=== PATIENT | male | born 1965 | race Caucasian/White ===

== ENCOUNTER → 2018-11-28 | Day surgery (SDC) | payer BC ==
[2018-11-26 15:02] LABS: BASOPHILS % 0.3 % (0.0-1.0); EOSINOPHILS # (AUTO) 0.1 (0.0-0.4); EOSINOPHILS % 1.2 % (0.0-6.0); HEMATOCRIT 45.5 % (38.2-49.6); HEMOGLOBIN 15.4 g/dL (14.0-18.0); LYMPHOCYTES # (AUTO) 1.1 (1.0-3.2); MEAN CORPUSCULAR HEMOGLOBIN 28.8 pg (28-32); MEAN CORPUSCULAR HGB CONC 33.8 g/dL (31-35); MEAN CORPUSCULAR VOLUME 85.2 fL (81-99); MONOCYTES # (AUTO) 0.6 (0.2-0.8); MONOCYTES % 7.8 % (4.4-11.3); NEUTROPHILS # (AUTO) 5.6 (2.1-6.9); NEUTROPHILS % 75.3 % (38.7-80.0); PLATELET COUNT 284 x10e3/uL (140-360); RED BLOOD COUNT 5.34 x10e6/uL (4.3-5.7); RED CELL DISTRIBUTION WIDTH 13.2 % (11.7-14.4)
[2018-11-26 15:13] LABS: INR 0.98; PROTHROMBIN TIME 13.5 seconds (11.9-14.5)
[2018-11-26 15:20] LABS: ALANINE AMINOTRANSFERASE 29 IU/L (0-55); ALBUMIN 4.2 g/dL (3.5-5.0); ALBUMIN/GLOBULIN RATIO 1.2 (0.8-2.0); ALKALINE PHOSPHATASE 65 IU/L (40-150); ANION GAP 12.8 mmol/L (8-16); BLOOD UREA NITROGEN 20 mg/dL (7-26); BUN/CREATININE RATIO 20 (6-25); CALCIUM 9.7 mg/dL (8.4-10.2); CARBON DIOXIDE 26 mmol/L (22-29); CHLORIDE 102 mmol/L (98-107); CREATININE, SERUM 0.98 mg/dL (0.72-1.25); EST GLOMERULAR FILTRATION RATE > 60 ML/MIN (60-); GLUCOSE 101 mg/dL (74-118); POTASSIUM 3.8 mmol/L (3.5-5.1); SODIUM 137 mmol/L (136-145)
[~2018-11-28] VITALS: Ht 172.7 cm; Wt 118.4 kg
[~2018-11-28] MED LIST: ASPIR 8181 MG PO; CRESTOR10 MG PO; IBUPROFEN200 MG PO; LISINOPRIL2.5 MG PO; METFORMIN HCL500 MG PO; PREVACID30 M1 PO
--- OUTSIDE RECORDS SUMMARY | 2018-11-28 10:03 | XMS REPORT ---
Author Author [facility] Address Unknown Phone Unavailable Care Team Providers Care Sales Floor Manager Name Role Phone Unavailable Unavailable Problems This patient has no known problems. Allergies, Adverse Reactions, Alerts This patient has no known allergies or adverse reactions. Medications This patient has no known medications. Encounters Start Date/Time End Date/Time Encounter Type Admission Type Attending [facility] Facility Care Department Encounter ID 2017-06-26 00:00:00 2017-06-27 00:00:00 Outpatient [facility] [place] [facility] [id number]
--- NOTE | 2018-11-28 15:10 | NUR ---
Report provided to Wilma Armstrong RN, review of procedural findings and medications given. Patient drowsy, easily aroused. maintains airway and room air saturations of 98-99%. No gross issues of pressure, pain, pallor or dysrhythmia. IV site patent with NS 0.9% at KVO by gravity. patient hemodynamically stable with TR BAND to right radial dressing CDI w/o s/s of bleeding. patient transferred to stretcher under own strength w/o incident. transported to [facility] holding [place] [facility] [place]: Diagtnostic LHC and coronary angiography radial approach Sheath puller: Jer SANABRIA TR Band 12ml Meds Given Intra-Procedure Sedatives Versed - 2 mg Fentanyl - 50 mcg Radial Cocktail IA Heparin - 3000Units Nitro - 200mcg Verapamil - 2.5mg Fluids Input - 300 ml Output - dtv Contrast Isovue 370 - 90 ml
[2018-11-28 15:30] VITALS: BP 113/77
--- NOTE | 2018-11-28 15:30 | NUR ---
1530 Bedside report received from Jorge TEAGUE. [facility] No sunita Valero. Alert oriented and appropriate, PERRLA, respirations even and unlabored to room air. Pulses x4 extremities equal and strong. Pedal pulses PT/DP 4 Cap fill brisk < 3 sec. Rt Tr band Skin warm and dry integrity appears D/I IV 20g to left ac presents healthy w/o s/s of infiltration or complaint. Abdomen soft and supple. pt offered toileting, denies need to urinate or defecate. No personal affects with patient. Family dauger . Pt and family verbalizes understanding of POC. TR band intact with normal neuro vascular function ok to remove air at 1605pm Currently w/o complaint of pain or need. 1605pm Tr band air removal initiated No gross issues pain pallor pressure or dysrhythmia. Normal neuro vascular function 1700 Tr band air removal completed. No gorss issues of pain pallor pressure or dysrhythmia.Normal neurovascular function Increments 15min. Sterile 2x2 and Coban dressing with arm splint.Nop hematoma or oozing. ds/rn
[2018-11-28 15:45] VITALS: BP 122/70
[2018-11-28 16:00] VITALS: BP 122/80
[2018-11-28 16:15] VITALS: BP 132/77
[2018-11-28 16:45] VITALS: BP 130/70
[2018-11-28 17:00] VITALS: BP 120/74
--- NOTE | 2018-11-28 17:15 | NUR ---
1715pt meets DC criteria. Rt Tr band site assessed for s/s of complication and presence of hematoma. warm, dry, no discolor, and pulses present. IV removed from left ac. Distal tip appears intact. VS WNL. Pt denies pain, sob, or need at this time. Family at discharge.. Review of discharge paperwork and follow up instructions. verbalized understanding. Pt to wheelchair and transported to front of hospital. Transferred to private vehicle under own strength w/o incident with DC paperwork in hand. - ds/rn
--- NOTE | 2018-11-28 19:53 | Operative Report ---
DATE OF PROCEDURE: 11/28/2018 SURGEON: Geovanny Valero MD INDICATION FOR PROCEDURE: Chest pain, positive stress test. PREPROCEDURE ASSESSMENT: The risks, benefits, and alternatives of the treatment were explained to the patient prior to the procedure. Informed consent was obtained as documented in the medical record. The patient's medical history, social history, and prior experience with anesthesia were reviewed. The patient was deemed to be an appropriate candidate for moderate sedation. MEDICATIONS: Please see nursing notes for medications administered during the procedure. PROCEDURES PERFORMED: 1. Coronary angiography, right radial approach. 2. Left heart catheterization. PROCEDURE IN DETAIL: The patient was brought to the cardiac catheterization laboratory in a fasting state. Right wrist was prepped and draped in a sterile fashion. A 6-Niuean Slender sheath was inserted into the right radial artery using modified Seldinger technique. Coronary angiography was performed using 5-Niuean Demetrice radial catheter. Multiple orthogonal views were taken of each coronary artery. Left heart catheterization was performed using Demetrice radial catheter. All catheters were removed over a wire. Active level closed using a TR band of his ascending without immediate complications. SIGNIFICANT FINDINGS: 1. Left main coronary artery: No significant disease. 2. Left anterior descending artery: Large vessel goes to the apex, one large diagonal branch. No significant CAD. Left circumflex, large vessel. Two significant OM branches, one has about 40% plaque in the proximal portion. Otherwise no significant disease. 3. RCA: Large dominant RCA, medium size RPDA and RPL system, nonsignificant disease. Left heart catheterization. LV pressure 125, LVEDP 11. No singing gradient across the aortic valve. GRAFTS AND IMPLANTS: None. SPECIMENS REMOVED: None. ESTIMATED BLOOD LOSS: 20 mL. COMPLICATIONS: None. FINAL RECOMMENDATIONS: 1. Continue optimal medical therapy and risk factor control. 2. Follow up in clinic 2 weeks post procedure. Geovanny Valero MD KVP/MODL /[id number]
== END | disposition home or self-care (01) ==
LOC: CATH LAB 10:00
PROVIDERS: ATTEND Internal Medicine
DX: I25.118 Atherosclerotic heart disease of native coronary artery with other forms of angina pectoris (principal); I87.2 Venous insufficiency (chronic) (peripheral); R94.39 Abnormal result of other cardiovascular function study; Z01.812 Encounter for preprocedural laboratory examination; Z79.82 Long term (current) use of aspirin; Z79.84 Long term (current) use of oral hypoglycemic drugs; Z68.41 Body mass index [BMI] 40.0-44.9, adult; Z82.49 Family history of ischemic heart disease and other diseases of the circulatory system; Z82.3 Family history of stroke
CPT/HCPCS: 36415; 80053; 85025; 85610; 93458; C1769; C1887